=== PATIENT | female | born 1990 | race Caucasian/White ===

== ENCOUNTER → 2016-11-19 | Outpatient (CLI) | payer OTHER ==
[~2016-11-19] MED LIST: PANT40TA5 PO
== END | disposition home or self-care (01) ==
LOC: STAR 08:20
PROVIDERS: ATTEND Surgery
DX: Z02.9 Encounter for administrative examinations, unspecified (principal)

== ENCOUNTER 2016-11-23 06:03 | Day surgery (SDC) | payer OTHER ==
[~2016-11-23] VITALS: Ht 170.2 cm; Wt 56.2 kg
[2016-11-23] MEDS ORDERED: ISOSULFAN BLUE 10 MG/ML, 5ML IV ONE (06:35)
[2016-11-23] MEDS ORDERED: BUPIVACAINE/PF 0.5% ONE (06:36)
[2016-11-23] MEDS ORDERED: LACTATED RINGERS 1,000 ML IV SCH (06:56)
[2016-11-23 07:10] VITALS: BP 130/82
[2016-11-23] MEDS ORDERED: MIDAZOLAM 1 MG/ML, 2ML ONE (07:32)
[2016-11-23] MEDS ORDERED: FENTANYL PF 100 MCG/2ML ONE ×2 (07:32)
[2016-11-23 07:34] LABS: HCG UR OBC PASS
[2016-11-23] MEDS ORDERED: EPHEDRINE 50 MG/ML, 1ML ONE (08:07)
[2016-11-23] MEDS ORDERED: KETOROLAC 30 MG/1 ML ONE (08:07)
[2016-11-23] MEDS ORDERED: GLYCOPYRROLATE 0.2MG/1ML, 5ML ONE (08:07)
[2016-11-23] MEDS ORDERED: METOCLOPRAMIDE 5 MG/ML, 2ML ONE (08:07)
[2016-11-23] MEDS ORDERED: ROCURONIUM 10 MG/ML ONE (08:07)
[2016-11-23] MEDS ORDERED: NEOSTIGMINE 1 MG/ML, 10ML ONE (08:07)
[2016-11-23] MEDS ORDERED: DEXAMETHASONE 4 MG/ML, 5ML ONE (08:07)
[2016-11-23] MEDS ORDERED: CEFOTETAN 1 GM ONE (08:07)
[2016-11-23] MEDS ORDERED: PROPOFOL 10 MG/ML, 20ML ONE (08:07)
[2016-11-23] MEDS ORDERED: ONDANSETRON 2MG/ML, 2ML ONE (08:07)
[2016-11-23] MEDS ORDERED: MIDAZOLAM 1 MG/ML, 2ML IV PRN (08:30)
[2016-11-23] MEDS ORDERED: LABETALOL 5MG/ML, 20ML IV PRN (08:30)
[2016-11-23] MEDS ORDERED: PROMETHAZINE 25 MG/ML, 1ML IV PRN (08:30)
[2016-11-23] MEDS ORDERED: ALBUTEROL/IPRATROPIUM 2.5MG/0.5MG, 3 ML NPPB PRN (08:30)
[2016-11-23] MEDS ORDERED: ACETAMINOPHEN 325 MG TABLET PO PRN (08:30)
[2016-11-23] MEDS ORDERED: FENTANYL PF 100 MCG/2ML IV PRN (08:30)
[2016-11-23] MEDS ORDERED: MEPERIDINE/PF 25MG/0.5ML IVPush PRN (08:30)
[2016-11-23] MEDS ORDERED: hydrALAzine 20 MG/ML, 1ML IV PRN (08:30)
[2016-11-23] MEDS ORDERED: ONDANSETRON 2MG/ML, 2ML IVPush PRN (08:30)
[2016-11-23] MEDS ORDERED: OXYcodone 5 MG/5 ML ORAL.SOL UDC PO PRN (08:30)
[2016-11-23] MEDS ORDERED: HYDROmorphone 1 MG/ML, 1ML ONE (08:53)
[2016-11-23] MEDS ORDERED: KETAMINE 10 MG/ML, 20ML ONE (09:51)
[2016-11-23] MEDS ORDERED: HYDROmorphone 2 MG/ML, 1ML ONE (10:01)
== END 2016-11-23 11:15 ==
LOC: OUT 06:03
PROVIDERS: ATTEND Surgery
DX: K81.1 Chronic cholecystitis (principal); K21.9 Gastro-esophageal reflux disease without esophagitis; Z72.89 Other problems related to lifestyle
CPT/HCPCS: 47562; 81025; 88304; J1100; J1170; J1885; J2250; J2405; J2704; J2710; J2765; J3010; J3490; J7120; S0074

== ENCOUNTER → 2016-12-07 | Outpatient (CLI) | payer OTHER | END | disposition home or self-care (01) | LOC: CFH 12:56 | PROVIDERS: ATTEND Obstetrics & Gynecology | DX: N63 Unspecified lump in breast (principal) ==